=== PATIENT | male | born 1990 | race Caucasian/White ===

== ENCOUNTER 2019-09-02 07:40 | Emergency (ER) | payer MEDICAID ==
[~2019-09-02] VITALS: Ht 180.3 cm; Wt 159.1 kg
[~2019-09-02 07:40] MED LIST: ALBU6.7H9 INH; ATI1T PO; ATOM60CA4 PO; CLON0.1T2 PO; GABA600T13 PO; HALO5TAB PO; HYDR50TA65 PO; LOPE2CAP PO; SIME125C97 PO; ZIPR80CA2 PO
[2019-09-02] MEDS ORDERED: ketorolac trometh inj. 60 MG/2 ML VIAL IM ONE (07:45)
[2019-09-02 08:04] LABS: BASOPHILS % (AUTO) 0.1 % (0-1); EOSINOPHILS # (AUTO) 0.2 X10'3 (0-0.9); EOSINOPHILS % (AUTO) 1.3 % (0-6); HEMOGLOBIN 13.5 g/dl (14.0-17.9); LYMPHOCYTES # (AUTO) 0.6 X10'3 (1.1-4.8); LYMPHOCYTES % (AUTO) 4.4 % (21-51); MEAN CORPUSCULAR HEMOGLOBIN 26.5 PG (27.0-31.0); MEAN CORPUSCULAR HGB CONC 32.8 g/dL (33.0-36.5); MEAN CORPUSCULAR VOLUME 80.9 FL (78-98); MEAN PLATELET VOLUME 7.9 FL (7.4-10.4); MONOCYTES # (AUTO) 0.9 X10'3 (0-0.9); MONOCYTES % (AUTO) 6.7 % (2-12); NEUTROPHILS # (AUTO) 11.4 X10'3 (1.8-7.7); NEUTROPHILS % (AUTO) 87.5 % (42-75); PLATELET COUNT 272 X10'3 (140-440); RED BLOOD COUNT 5.07 X10'6 (4.70-6.10); RED CELL DISTRIBUTION WIDTH 15.2 % (11.5-14.5); WHITE BLOOD COUNT 13.1 X10'3 (4.5-11.0)
[2019-09-02 08:18] LABS: ALANINE AMINOTRANSFERASE 61 U/L (12-78); ALBUMIN 3.5 G/DL (3.4-5.0); ALKALINE PHOSPHATASE 91 IU/L (46-116); ANION GAP 6 (8-16); ASPARTATE AMINO TRANSFERASE 54 U/L (10-37); BILIRUBIN,TOTAL 0.5 MG/DL (0.1-1.0); BLOOD UREA NITROGEN 17 MG/DL (7-18); BUN/CREATININE RATIO 14.8 (5.4-32.0); CALCIUM 9.3 MG/DL (8.5-10.1); CHLORIDE 109 MMOL/L (99-107); CREATININE 1.15 MG/DL (0.60-1.10); GLUCOSE 77 MG/DL (70-104); LIPASE 55 U/L (73-393); POTASSIUM 4.2 MMOL/L (3.5-5.1); SODIUM 143 MMOL/L (135-145); TOTAL CARBON DIOXIDE 27.8 MMOL/L (24-32); TOTAL PROTEIN 6.9 G/DL (6.4-8.2); eGFR 77 ML/MIN
[2019-09-02 08:19] LABS: CLARITY,URINE CLEAR (Clear); COLOR,URINE YELLOW (Yellow); GLUCOSE, URINE NEGATIVE (Neg); KETONES,URINE NEGATIVE (Neg); LEUKOCYTE ESTERASE ,URINE NEGATIVE (Neg); NITRITES, URINE NEGATIVE (Neg); OCCULT BLOOD,URINE NEGATIVE (Neg); PROTEIN,URINE NEGATIVE (Neg); UROBILINOGEN,URINE 0.2 E.U/dL (0.2-1.0)
[2019-09-02 08:21] LABS: UA COLLECTION TYPE URINAL
[2019-09-02] MEDS ORDERED: sucralfate 1gm/10ml UD suspension PO STA (08:22)
[2019-09-02] MEDS ORDERED: LIDOcaine Viscous 15ml cup MM ONE (08:25)
[2019-09-02] MEDS ORDERED: mag hydrox/Alum hydrox/simeth 30ml oral suspension PO ONE (08:25)
[2019-09-02] MEDS ORDERED: SUCR1TAB34 PO (08:36)
[2019-09-02 09:21] VITALS: BP 163/93
== END 2019-09-02 09:23 | disposition home or self-care (01) ==
LOC: ER 07:40
DX: M54.9 Dorsalgia, unspecified (principal); R30.0 Dysuria; R10.13 Epigastric pain; Z56.0 Unemployment, unspecified; Z59.0 Homelessness; Z88.5 Allergy status to narcotic agent; Z88.8 Allergy status to other drugs, medicaments and biological substances; Z79.899 Other long term (current) drug therapy
CPT/HCPCS: 36415; 80053; 81003; 83690; 85025; 96372; 99283; J1885

== ENCOUNTER 2023-10-11 10:48 | Emergency (ER) | payer MEDICARE, MEDICAID ==
[~2023-10-11] VITALS: Ht 180.3 cm; Wt 153.6 kg
[~2023-10-11 10:48] MED LIST changes: +ALBU6.7H14 INH; -ALBU6.7H9 INH; +SUCR1TAB34 PO
[2023-10-11 10:57] VITALS: BP 152/92; PULSE 84; RESP 16; TEMP 98.2; O2SAT 98
[2023-10-11] MEDS ORDERED: haloperidol lactate 5mg/ml inj IM ONE (11:10)
[2023-10-11] MEDS ORDERED: LORA-269 PO (11:16)
[2023-10-11] MEDS ORDERED: HALO10TA13 PO (11:16)
[2023-10-11] MEDS ORDERED: ZIPR80CA2 PO (11:16)
[2023-10-11] MEDS: haloperidol lactate 5mg/ml inj IM ONE (11:51)
== END 2023-10-11 11:58 | disposition home or self-care (01) ==
LOC: ER 10:49
DX: Z00.00 Encounter for general adult medical examination without abnormal findings (principal); R44.0 Auditory hallucinations; Z88.8 Allergy status to other drugs, medicaments and biological substances; Z79.899 Other long term (current) drug therapy; Z59.00 Homelessness unspecified; Z56.0 Unemployment, unspecified
CPT/HCPCS: 96372; 99284; J1630; 99283